=== PATIENT | female | born 1950 | race Caucasian/White ===

== ENCOUNTER 2018-11-16 07:44 | Emergency (ER) | payer BC ==
[~2018-11-16] VITALS: Ht 167.6 cm; Wt 71.7 kg
[~2018-11-16 07:44] MED LIST: SIMVASTATIN40 MG PO; WELLBUTRIN SR150 MG PO
[2018-11-16] MEDS ORDERED: TUSSIONEX PENN115 ML PO (12:32)
== END 2018-11-16 13:28 | disposition home or self-care (01) ==
LOC: ER 07:44
DX: R05 Cough (principal)

== ENCOUNTER 2023-05-24 12:52 | Emergency (ER) | payer BC ==
[~2023-05-24] VITALS: Ht 160 cm; Wt 68.0 kg
[~2023-05-24 12:52] MED LIST changes: +CETIRIZINE HCL10 MG; +FAMOTIDINE20 MG; +KETO10TA2 PO; +ORPHENADRINE C100 MG PO; +TUSSIONEX PENN115 ML PO
[2023-05-24] MEDS ORDERED: ZYRTEC10 M3 PO (14:28)
[2023-05-24 15:27] LABS: HEMATOCRIT 35.2 % (36.0-45.00); HEMOGLOBIN 11.7 g/dL (12.0-15.00); MEAN CELL VOLUME 95.5 fL (80.00-100.00); MEAN CORPUSCULAR HEMOGLOBIN 31.8 pg (27.00-32.0); MEAN CORPUSCULAR HGB CONC 33.3 g/dl (32.0-36.0); PLATELET COUNT 234 K/uL (150-450); RED BLOOD COUNT 3.69 M/uL (4.00-6.00); RED CELL DISTRIBUTION WIDTH 14.1 % (11.5-14.5)
== END 2023-05-24 17:11 | disposition home or self-care (01) ==
LOC: ER 12:52
PROVIDERS: General Practice
DX: H66.92 Otitis media, unspecified, left ear (principal); Z20.822 Contact with and (suspected) exposure to COVID-19; Z88.0 Allergy status to penicillin

== ENCOUNTER 2024-04-15 14:16 | Emergency (ER) | payer OTHER ==
[~2024-04-15] VITALS: Ht 160 cm; Wt 68.0 kg
[~2024-04-15 14:16] MED LIST changes: +CIPRO500 MG PO; +PYRIDIUM DS200 MG PO; +ZYRTEC10 M3 PO
== END 2024-04-15 17:47 ==
LOC: ER 14:18
DX: L02.414 Cutaneous abscess of left upper limb (principal); Z88.0 Allergy status to penicillin; Z93.8 Other artificial opening status; E78.49 Other hyperlipidemia

== ENCOUNTER 2024-11-06 15:53 | Emergency (ER) | payer OTHER ==
[~2024-11-06] VITALS: Ht 162.6 cm; Wt 68.9 kg
[2024-11-06] MEDS ORDERED: KETOROLAC TROMETHAMINE 30 MG VIAL IV STA (17:57)
[2024-11-06] MEDS ORDERED: HALOPERIDOL LACTATE 5 MG/ML AMPUL IM STA (17:58)
[2024-11-06] MEDS ORDERED: DIPHENHYDRAMINE HCL 50 MG/ML VIAL 1ML IM STA (17:58)
[2024-11-06] MEDS ORDERED: DIPHENHYDRAMINE HCL 50 MG/ML VIAL 1ML ONE (18:39)
[2024-11-06] MEDS ORDERED: KETOROLAC TROMETHAMINE 30 MG VIAL ONE (18:39)
[2024-11-06] MEDS ORDERED: HALOPERIDOL LACTATE 5 MG/ML AMPUL ONE (18:39)
== END 2024-11-06 21:11 | disposition home or self-care (01) ==
LOC: ER 16:23
DX: G43.909 Migraine, unspecified, not intractable, without status migrainosus (principal); Z88.0 Allergy status to penicillin